=== PATIENT | male | born 1960 ===

== ENCOUNTER 2020-08-08 13:35 | Outpatient (CLI) | payer MEDICAID ==
[~2020-08-08] VITALS: Ht 180.3 cm; Wt 85.7 kg
[2020-08-08 15:12] VITALS: BP 135/78
--- NOTE | 2020-08-09 08:25 | Consultation ---
DATE OF CONSULTATION: 08/08/2020 CHIEF COMPLAINT: Referral for screening colonoscopy. PAST MEDICAL HISTORY: Mitral valve prolapse. PAST SURGICAL HISTORY: None. MEDICATIONS: Flexeril. FAMILY HISTORY: Father had GI cancer. SOCIAL HISTORY: The patient denies any tobacco, alcohol, drug abuse. ALLERGIES: No known drug allergies. REVIEW OF SYSTEMS: Negative. PHYSICAL EXAMINATION: VITAL SIGNS: Temperature 98, blood pressure 135/78, pulse 70, respirations 20. Height is 5 feet 11 inches and weight is 189. HEENT: Normocephalic and atraumatic. Sclerae anicteric. NECK: Supple. No evidence of obvious lymphadenopathy. CARDIOVASCULAR: Regular rate and rhythm. Plus S1, S2. LUNGS: Clear to auscultation bilaterally. ABDOMEN: Positive bowel sounds. Soft and nontender. No rebound. No guarding. No peritoneal sign. EXTREMITIES: No cyanosis. No clubbing. No edema. ASSESSMENT AND PLAN: This is a 60-year-old male need for screening colonoscopy. PLAN: The patient was given instruction for colonoscopy. Risks and benefits of procedure was explained to him. We will schedule him as soon as authorization is obtained. David Alvarenga M.D. DR: Juarez JOB#: [id number] CC:
== END 2020-08-08 15:35 | disposition home or self-care (01) ==
LOC: PAN 13:35
DX: Z00.00 Encounter for general adult medical examination without abnormal findings (principal); Z80.0 Family history of malignant neoplasm of digestive organs; Z79.899 Other long term (current) drug therapy
CPT/HCPCS: G0463

== ENCOUNTER 2020-10-27 14:09 | Outpatient (CLI) | payer MEDICAID | END 2020-10-27 16:09 | disposition home or self-care (01) | LOC: PAN 14:09 | DX: R10.9 Unspecified abdominal pain (principal) | CPT/HCPCS: 99212 ==